=== PATIENT | female | born 1985 | race Asian ===

== ENCOUNTER 2020-07-07 13:20 | Emergency (ER) | payer MEDICAID ==
[~2020-07-07] VITALS: Ht 160 cm; Wt 73.8 kg
[2020-07-07] MEDS ORDERED: DEXAMETHASONE 4 MG TABLET PO ONE (14:00)
[2020-07-07] MEDS ORDERED: DEXAMETHASONE 4 MG TABLET ONE (14:06)
[2020-07-07 14:42] VITALS: BP 130/85
== END 2020-07-07 14:44 | disposition home or self-care (01) ==
LOC: ED 14:38
DX: J36 Peritonsillar abscess (principal); Z87.891 Personal history of nicotine dependence
CPT/HCPCS: 87081; 99283